=== PATIENT | male | born 1985 | race Two or more races ===

== ENCOUNTER → 2024-04-13 | Outpatient (RCR) | payer OTHER | LOC: M PT 13:20 → EDSEX 13:30 | PROVIDERS: ATTEND Physician Assistant | DX: M79.672 Pain in left foot (principal) ==

== ENCOUNTER → 2024-04-29 | Outpatient (REF) | payer OTHER ==
[2024-04-29 18:52] LABS: BLOOD UREA NITROGEN 14 MG/DL (9-23); CALCIUM LEVEL 9.8 MG/DL (8.5-10.1); CARBON DIOXIDE LEVEL 29 MMOL/L (20-31); CHLORIDE LEVEL 103 MMOL/L (98-107); CHOLESTEROL LEVEL 293 MG/DL (<200); CHOLESTEROL RISK RATIO 6.45 (<5); CREATININE FOR GFR 0.89 MG/DL (0.70-1.30); GLOMERULAR FILTRATION RATE > 60.0 (>60); GLUCOSE, FASTING 103 MG/DL (60-100); HDL CHOLESTEROL 45.4 MG/DL (>40); NON-HDL-C 247.6 MG/DL; POTASSIUM SERUM 4.6 MMOL/L (3.5-5.1); SODIUM LEVEL 140 MMOL/L (136-145); TRIGLYCERIDES LEVEL 488 MG/DL (<150)
== END ==
LOC: M LAB REF 16:28
PROVIDERS: ATTEND Physician Assistant
DX: E78.2 Mixed hyperlipidemia (principal)

== ENCOUNTER 2024-05-07 13:30 | Outpatient (RCR) | payer OTHER | END 2024-05-14 | LOC: M PT 13:30 | PROVIDERS: ATTEND Physician Assistant | DX: M79.672 Pain in left foot (principal) ==

== ENCOUNTER 2024-05-17 13:44 | Outpatient (RCR) | payer OTHER | END 2024-06-11 | LOC: M PT 13:44 | PROVIDERS: ATTEND Physician Assistant | DX: M79.672 Pain in left foot (principal) ==

== ENCOUNTER → 2024-09-01 | Outpatient (REF) | payer OTHER ==
[2024-09-01 18:26] LABS: HEMOGLOBIN A1c 5.3 % (4.0-6.0)
[2024-09-01 18:29] LABS: ALBUMIN 4.1 G/DL (3.2-5.2); ALKALINE PHOSPHATASE 54 U/L (40-129); ALT/SGPT 114 U/L (7.0-40); AST/SGOT 44 U/L (<34); BILIRUBIN,DIRECT 0.3 MG/DL (<0.4); BILIRUBIN,TOTAL 1.7 MG/DL (0.3-1.2); BLOOD UREA NITROGEN 16 MG/DL (9-23); CALCIUM LEVEL 9.4 MG/DL (8.5-10.1); CARBON DIOXIDE LEVEL 26 MMOL/L (20-31); CHLORIDE LEVEL 104 MMOL/L (98-107); CHOLESTEROL LEVEL 268 MG/DL (<200); CHOLESTEROL RISK RATIO 6.75 (<5); CREATININE FOR GFR 0.99 MG/DL (0.70-1.30); GLOMERULAR FILTRATION RATE > 90.0 (>60); GLUCOSE, FASTING 91 MG/DL (60-100); HDL CHOLESTEROL 39.7 MG/DL (>40); NON-HDL-C 228.3 MG/DL; POTASSIUM SERUM 4.2 MMOL/L (3.5-5.1); SODIUM LEVEL 140 MMOL/L (136-145); TRIGLYCERIDES LEVEL 649 MG/DL (<150)
== END ==
LOC: M LAB REF 17:44
PROVIDERS: ATTEND Physician Assistant
DX: E78.2 Mixed hyperlipidemia (principal)

== ENCOUNTER → 2025-01-05 | Outpatient (REF) | payer OTHER ==
[2025-01-05 15:26] LABS: ALT/SGPT 208 U/L (7.0-40); AST/SGOT 74 U/L (<34); CALCIUM LEVEL 8.6 MG/DL (8.5-10.1); CARBON DIOXIDE LEVEL 27 MMOL/L (20-31); CHLORIDE LEVEL 105 MMOL/L (98-107); CHOLESTEROL LEVEL 157 MG/DL (<200); CHOLESTEROL RISK RATIO 3.72 (<5); CREATININE FOR GFR 1.00 MG/DL (0.70-1.30); GLOMERULAR FILTRATION RATE > 90.0 (>60); LDL CHOLESTEROL 66.3 MG/DL (<100); NON-HDL-C 114.9 MG/DL; POTASSIUM SERUM 4.0 MMOL/L (3.5-5.1); SODIUM LEVEL 138 MMOL/L (136-145); TRIGLYCERIDES LEVEL 243 MG/DL (<150)
== END ==
LOC: M LAB REF 14:13
PROVIDERS: ATTEND Physician Assistant
DX: E78.2 Mixed hyperlipidemia (principal); R74.8 Abnormal levels of other serum enzymes

== ENCOUNTER → 2025-02-16 | Outpatient (CLI) | payer OTHER | LOC: M RAD 07:11 | PROVIDERS: ATTEND Physician Assistant | DX: R74.01 Elevation of levels of liver transaminase levels (principal) ==